=== PATIENT | male | born 1985 | race Caucasian/White ===

== ENCOUNTER → 2022-12-18 | Outpatient (CLI) | payer OTHER, SELFPAY ==
--- NOTE | 2022-12-18 14:00 | RAD_ITS ---
INDICATION: LEFT ANKLE FRACTURE EXAMINATION/TECHNIQUE: X-RAY - LEFT XR Ankle 2 Views COMPARISON: None. FINDINGS: SOFT TISSUES: Unremarkable. 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 No evidence of an acute fracture or dislocation. Mild tibiotalar degenerative change. No erosive changes. RAD/Ankle 2 Views IMPRESSION: No evidence of an acute fracture or dislocation. Electronically Signed: Sesar Richardson DO at 3:55 EDT ,
== END | disposition home or self-care (01) ==
LOC: RAD 13:56
PROVIDERS: Referring Provider Chiropractor; Visit Provider Chiropractor
DX: S82.92XA Unspecified fracture of left lower leg, initial encounter for closed fracture (principal)
CPT/HCPCS: 73600